=== PATIENT | female | born 2000 | race Caucasian/White ===

== ENCOUNTER 2021-04-16 13:14 | Emergency (ER) | payer OTHER ==
[~2021-04-16] VITALS: Ht 162.5 cm; Wt 65.8 kg
== END 2021-04-16 17:44 | disposition left against medical advice (07) ==
LOC: ED 13:14
DX: M54.2 Cervicalgia (principal); M54.9 Dorsalgia, unspecified; Z53.21 Procedure and treatment not carried out due to patient leaving prior to being seen by health care provider